=== PATIENT | male | born 1995 | race Caucasian/White ===

== ENCOUNTER 2017-04-09 21:41 | Emergency (ER) | payer BC ==
[2017-04-09 22:24] VITALS: BP 148/78
--- NOTE | 2017-04-09 23:48 | RADIOLOGY REPORT (SQ) ---
EXAM DESCRIPTION: HAND RIGHT 3 VIEWS COMPLETED DATE/TIME: 04/09/2017 11:10 pm REASON FOR STUDY: PAIN COMPARISON: None. EXAM PARAMETERS: NUMBER OF VIEWS: Three views. TECHNIQUE: AP, lateral and oblique radiographic images acquired of the right hand. LIMITATIONS: None. FINDINGS: MINERALIZATION: Normal. BONES: 5th metacarpal diaphyseal fracture with mild dorsal angulation. No dislocation. No worrisome bone lesions. JOINTS: No effusions. SOFT TISSUES: Mild dorsal soft tissue swelling. No foreign body. OTHER: No other significant finding. IMPRESSION: 5th metacarpal diaphyseal fracture with mild dorsal angulation. TECHNICAL DOCUMENTATION: JOB ID: [id number] [place]-72 2010 [employer]- All Rights Reserved
[2017-04-10] MEDS ORDERED: MORPHINE SULFATE IR 15 MG TABLET PO ONE (00:15)
--- NOTE | 2017-04-10 00:20 | ER Document Report ---
HPI - HPI Pain Level: 5 Notes: Patient is a 21-year-old male with no significant past medical history who presents to the ED complaining of pain to his right fifth MCP joint status post injury prior to arrival. Patient states that he tripped and fell into his weight set and hitting his hand off of the metal. Patient states that he noticed immediate swelling and bruising to the hand. The pain does not radiate. Patient states that he is still able to move his fingers through ROM, but does have some discomfort with the 5th digit at the MCP joint. Denies any drug allergies. Patient has not had any medications for symptoms. Denies any headache, fever, head injury, neck pain, URI, sore throat, chest pain, palpitations, syncope, cough, shortness of breath, wheeze, dyspnea, abdominal pain, nausea/vomiting/diarrhea, urinary retention, dysuria, hematuria, numbness/ tingling, or rash. - ROS Systems Reviewed and Negative: Yes All other systems reviewed and negative Past Medical History - Social History Smoking Status: Never Smoker Family History: Reviewed & Not Pertinent Vertical Provider Document - CONSTITUTIONAL Agree With Documented VS: Yes Notes: PHYSICAL EXAMINATION: GENERAL: Well-appearing, well-nourished and in no acute distress. LUNGS: Breath sounds clear to auscultation bilaterally and equal. No wheezes rales or rhonchi. HEART: Regular rate and rhythm without murmurs, rubs, gallops. Musculoskeletal: Rt hand: + swelling and ecchymosis at the rt 5th Metacarpal/ MCP. + tenderness and mild deformity noted. No open areas of the skin. N/V intact distal. No other bony tenderness of the hand/wrist. Extremities: No cyanosis, clubbing, or edema b/l. Peripheral pulses 2+. Capillary refill less than 3 seconds. NEUROLOGICAL: Normal speech, normal gait. Normal sensory, motor exams PSYCH: Normal mood, normal affect. SKIN: Warm, Dry, normal turgor, no rashes or lesions noted. - INFECTION CONTROL TRAVEL OUTSIDE OF THE [place] IN LAST 30 DAYS: No - RESPIRATORY O2 Sat by Pulse Oximetry: 100 Course - Re-evaluation Re-evalutation: 04/10/17 01:05 Patient is an afebrile, well-hydrated, 21-year-old male who presents to the ED with a 5th metacarpal fracture of the right hand. vitals are stable. PE is otherwise unremarkable for any neurovascular compromise, obvious tendon/ ligament rupture, open fracture, septic joint. See x-ray results. Ulnar gutter splint was placed today. Patient was given 1 tablet of morphine IR. Recommend conservative measures for symptoms. Call orthopedics tomorrow to schedule an appointment for further evaluation and management. I will send him home with a short prescription of morphine IR to use only for breakthrough pain. Recheck with your PCM in 1 week as well. Return to the ED with any worsening/concerning symptoms otherwise as reviewed discharge. Patient is in agreement. - Vital Signs Vital signs: Temp Pulse Resp BP Pulse Ox 98.8 F 69 18 148/78 H 100 04/09/17 22:22 04/09/17 22:22 04/09/17 22:22 04/09/17 22:22 04/09/17 22:22 Procedures - Immobilization Right Hand Time completed: 01:00 Pre-Proc Neuro Vasc Exam: Normal Immobilizer type: Ulnar - ulnar gutter Performed by: PCT Post-Proc Neuro Vasc Exam: Normal, Unchanged from pre-exam Discharge - Discharge Clinical Impression: Closed fracture of 5th metacarpal Qualifiers: Encounter type: initial encounter Metacarpal location: shaft Fracture alignment : nondisplaced Laterality: right Qualified Code(s): S62.356A - Nondisplaced fracture of shaft of fifth metacarpal bone, right hand, initial encounter for closed fracture Condition: Stable Disposition: HOME, SELF-CARE Instructions: Fractured Fifth Metacarpal ([facility]) Additional Instructions: Rest, Ice, Compression, Elevation Use splint as directed Tylenol/ibuprofen as needed Light stretches daily Strength exercises as able Moist heat and massage may help F/u with your PCP in 1 week for a recheck Call orthopedics tomorrow to schedule an appointment for further evaluation and management Return to the ED with any worsening symptoms and/or development of fever, headache, chest pain, palpitations, syncope, shortness of breath, trouble breathing, abdominal pain, n/v/d, muscle weakness/paralysis, numbness/tingling, swelling, redness, or other worsening symptoms that are concerning to you. Prescriptions: Morphine Sulfate [Morphine Ir 15 Mg Tablet] 15 mg PO TID #10 tablet Forms: Elevated Blood Pressure Referrals: [facility] [Provider Group] - Follow up tomorrow
== END 2017-04-10 01:22 | disposition home or self-care (01) ==
LOC: ER 21:41
DX: S62.356A Nondisplaced fracture of shaft of fifth metacarpal bone, right hand, initial encounter for closed fracture (principal); W19.XXXA Unspecified fall, initial encounter
CPT/HCPCS: 99283